=== PATIENT | female | born 1960 | race Caucasian/White ===

== ENCOUNTER 2017-02-09 11:39 | Day surgery (SDC) | payer BC ==
[~2017-02-09 11:39] MED LIST: Buffered Lidocaine 0.9% SYRIN* 5 ML/SYR SYRINGE INTRADERM ONE; Dexamethasone IV* 4 MG/ML 1 ML (4 MG) IV SLOW PU ONE; Dexamethasone IV* 4 MG/ML 1 ML (4 MG) ONE; Famotidine IV* 10 MG/ML 2 ML (20 mg) IV ONE; Famotidine IV* 10 MG/ML 2 ML (20 mg) ONE
[2017-02-09] MEDS ORDERED: Ondansetron INJ* 2 MG/ML VIAL IV PRN (11:53)
[2017-02-09] MEDS ORDERED: fentaNYL* 50 MCG/ML 2 ML VIAL (100 MCG VIAL) IV PRN (11:53)
[2017-02-09] MEDS ORDERED: oxyCODONE/Acetamin 5/325 MG* TAB PO PRN (11:53)
[2017-02-09] MEDS ORDERED: Bupivacaine 0.25% SDV* 30 ML ONE (11:54)
[2017-02-09] MEDS ORDERED: Dexamethasone IV* 4 MG/ML 1 ML (4 MG) ONE (11:56)
[2017-02-09] MEDS ORDERED: Lidocaine 2% PF * 5 ML VIAL ONE (11:56)
[2017-02-09] MEDS ORDERED: fentaNYL* 50 MCG/ML 2 ML VIAL (100 MCG VIAL) ONE (11:56)
[2017-02-09] MEDS ORDERED: Ondansetron INJ* 2 MG/ML VIAL ONE (11:56)
[2017-02-09] MEDS ORDERED: Midazolam* 1 MG/ML 5 ML VIAL (5 MG) ONE (11:56)
[2017-02-09] MEDS ORDERED: Propofol* 10 MG/ML 20 ML BTL IV PUSH ONE (11:56)
[2017-02-09] MEDS ORDERED: KETAMINE HCL* 50 MG/ML 10 ML VIAL ONE (12:33)
[2017-02-09 13:31] VITALS: BP 106/66
--- NOTE | 2017-02-09 23:00 | OP ---
DATE OF OPERATION: 02/09/17 - [facility] DATE OF : 64 SURGEON: Aroldo Pizano MD CEMENT MASON: LOREE Ortega ANESTHESIOLOGIST: Dr. Mcneil. ANESTHESIA: Local MAC. PRE-OP DIAGNOSES: 1. Left carpal tunnel syndrome. 2. Left de Quervain's disease. POST-OP DIAGNOSES: 1. Left carpal tunnel syndrome. 2. Left de Quervain's disease. OPERATIVE PROCEDURE: 1. Left open carpal tunnel release. 2. Left de Quervain's release. INDICATIONS: Selma has had progressive disease. She has quite a bit of carpal tunnel syndrome. She had very inflamed de Quervain's disease. We talked about risks and benefits. She wanted to proceed with releases. ESTIMATED BLOOD LOSS: 2 mL. COMPLICATIONS: None. FINDINGS: As expected. DESCRIPTION OF PROCEDURE: Selma was seen in the preoperative holding area. The correct side, site, and procedure were identified. We came back to the operating room and the arm was prepped and draped in the usual fashion after she got some anesthesia. I infiltrated the operative area with 0.25% plain Marcaine. A time- out was performed. I began by making 2 to 3 cm longitudinal incision in standard location for an open carpal tunnel release. Dissection was carried down through the subcutaneous tissue and palmar fascia to expose the transverse carpal ligament. This was released just off the radial aspect of the hook of the hamate. The release was completed distally and then proximally. When I got to the wrist flexion crease, I released the fascia and the subcutaneous tissue and retracted this volarly and ulnarly with the Milena rake and then under direct visualization , released remainder of the transverse carpal ligament and the distal antebrachial fascia with the tenotomy scissors. Once I checked the release, it was completed distally and proximally and there was absolutely no compression on the nerve. I went ahead and irrigated out the wound. Skin was closed with 4 -0 nylon suture. I then turned my attention to the wrist where I made a 2-cm transverse incision just a bit proximal to the radial styloid. Dissection was carried down bluntly and full thickness flaps were elevated off of the first dorsal compartment tendon sheath. On the dorsal aspect, I went ahead and took my 15 blade and released the tendon sheath in line with the tendons. There was significant thickening of the tendon sheath. It was at least 2 to 3 mm thick. There was an accessory compartment, which was released. There was abundant tenosynovitis , which was excised. Once I had completed the release proximally and distally with a tenotomy scissors, we irrigated out the wound. Skin was closed with 4-0 nylon suture. Wounds were dressed with Xeroform, 4x4s, sterile Webril and an Bj bandage. She was then taken to recovery room in stable condition. [id number]/[facility] #: [id number] [facility]ENTERMax
== END 2017-02-09 13:44 | disposition home or self-care (01) ==
LOC: OREAST 11:39
PROVIDERS: ATTEND Orthopaedic Surgery Hand Surgery
DX: G56.02 Carpal tunnel syndrome, left upper limb (principal); M65.4 Radial styloid tenosynovitis [de Quervain]
CPT/HCPCS: J1100; J2250; J2405; J2704; J3010

== ENCOUNTER 2017-03-02 06:39 | Day surgery (SDC) | payer BC ==
[~2017-03-02 06:39] MED LIST changes: -Buffered Lidocaine 0.9% SYRIN* 5 ML/SYR SYRINGE INTRADERM ONE; -Dexamethasone IV* 4 MG/ML 1 ML (4 MG) IV SLOW PU ONE; -Dexamethasone IV* 4 MG/ML 1 ML (4 MG) ONE; -Famotidine IV* 10 MG/ML 2 ML (20 mg) ONE; +Metoclopramide TAB* 10 MG PO ONE
[2017-03-02] MEDS ORDERED: Famotidine IV* 10 MG/ML 2 ML (20 mg) ONE (06:49)
[2017-03-02] MEDS ORDERED: Metoclopramide TAB* 10 MG ONE (06:49)
[2017-03-02] MEDS ORDERED: Bupivacaine 0.25% SDV* 30 ML ONE (07:00)
[2017-03-02] MEDS ORDERED: Buffered Lidocaine 0.9% SYRIN* 5 ML/SYR SYRINGE ONE (07:03)
[2017-03-02] MEDS: Buffered Lidocaine 0.9% SYRIN* 5 ML/SYR SYRINGE INTRADERM ONE ×2 (07:08→07:13)
[2017-03-02] MEDS ORDERED: Ketorolac INJ* 30 MG/ML 1 ML VIAL ONE (07:30)
[2017-03-02] MEDS ORDERED: Dexamethasone IV* 4 MG/ML 1 ML (4 MG) ONE (07:30)
[2017-03-02] MEDS ORDERED: Ondansetron INJ* 2 MG/ML VIAL ONE (07:30)
[2017-03-02] MEDS ORDERED: Propofol* 10 MG/ML 20 ML BTL IV PUSH ONE (07:30)
[2017-03-02] MEDS ORDERED: Midazolam* 1 MG/ML 5 ML VIAL (5 MG) ONE (07:30)
[2017-03-02] MEDS ORDERED: Lidocaine 2% PF * 5 ML VIAL ONE (07:30)
[2017-03-02] MEDS ORDERED: fentaNYL* 50 MCG/ML 2 ML VIAL (100 MCG VIAL) ONE (07:30)
[2017-03-02] MEDS ORDERED: Ondansetron INJ* 2 MG/ML VIAL IV PRN (07:34)
[2017-03-02] MEDS ORDERED: oxyCODONE/Acetamin 5/325 MG* TAB PO PRN (07:34)
[2017-03-02] MEDS ORDERED: fentaNYL* 50 MCG/ML 2 ML VIAL (100 MCG VIAL) IV PRN (07:34)
[2017-03-02 09:12] VITALS: BP 111/66
--- NOTE | 2017-03-03 00:28 | OP ---
OPERATIVE REPORT: DATE OF OPERATION: 03/02/17 - [facility] DATE OF : 64 SURGEON: Aroldo Pizano MD ARTIFICIAL CANDY MAKER: LOREE Ortega ANESTHESIOLOGIST: Dr. Mcneil. ANESTHESIA: Local MAC. PRE-OP DIAGNOSIS: Right carpal tunnel syndrome. POST-OP DIAGNOSIS: Right carpal tunnel syndrome. OPERATIVE PROCEDURE: Right open carpal tunnel release. INDICATIONS: Selma has had progressive disease. I did her left side. She want the right side done, so we talked about risks and benefits. ESTIMATED BLOOD LOSS: 2 mL. COMPLICATIONS: None. FINDINGS: As expected. DESCRIPTION OF PROCEDURE: Selma was seen in the preoperative holding area. We came back to the operating room and the arm was prepped and draped in the usual fashion and a time-out was performed. The arm was exsanguinated with the Esmarch and the tourniquet was inflated to 250 mmHg. A 2 to 3 cm longitudinal incision was made in the typical location for an open carpal tunnel release. Dissection was carried down through the subcutaneous tissue and palmar fascia. The transverse carpal ligament was visualized and released just off the radial aspect of the hook of the hamate. The release was completed distally. Proximally, I released the fascia and subcutaneous tissue and retracted this volarly and ulnarly with a Milena retractor. I then used the tenotomy scissors to release the remainder of the transverse carpal ligament in distal antebrachial fascia to a level several centimeters proximal to the wrist flexion crease. I then checked the decompression proximally and distally, everything was looking good. It was completely decompressed. We irrigated out the wounds. The skin was closed with 4-0 nylon suture. The wound was dressed with Xeroform, 4x4, sterile Webril and an ABD. She was woken up and taken to recovery room in stable condition. [id number]/[facility] #: [id number] MTDMax
== END 2017-03-02 08:59 | disposition home or self-care (01) ==
LOC: OREAST 06:39
PROVIDERS: ATTEND Orthopaedic Surgery Hand Surgery
DX: G56.01 Carpal tunnel syndrome, right upper limb (principal); M65.4 Radial styloid tenosynovitis [de Quervain]
CPT/HCPCS: A9270-GY; J1100; J1885; J2250; J2405; J2704; J3010